=== PATIENT | female | born 1995 | race Caucasian/White ===

== ENCOUNTER 2016-05-02 23:58 | Emergency (ER) | payer BC ==
[~2016-05-02] VITALS: Ht 172.7 cm; Wt 72.1 kg
[~2016-05-02 23:58] MED LIST: BCPILLS PO; SERT-234 PO
[2016-05-03 00:03] VITALS: TEMP 36.8; Ht 172.7 cm; Wt 72.1 kg
[2016-05-03] MEDS ORDERED: ZLF/50 PO (01:35)
[2016-05-03] MEDS ORDERED: NORGTAB10 PO (01:35)
[2016-05-03] MEDS ORDERED: PROPARACAINE HCL 0.5% OP SOLN 15 ML BTL OP STA (01:37)
[2016-05-03] MEDS ORDERED: CIPROFLOXACIN HCL 0.3% OP SOLN 2.5 ML BTL OP STA (02:13)
[2016-05-03] MEDS ORDERED: CLINDAMYCIN IV 900 MG in DEXTROSE 5% ADD-VANTAGE 100ML 100 ML IV ONE (02:15)
[2016-05-03 02:40] LABS: HEMATOCRIT 32.3 % (37-47); MEAN CELL VOLUME 86.8 fL (80-100); MEAN CORPUSCULAR HEMOGLOBIN 30.4 pg (25-34); MEAN PLATELET VOLUME 10.2 fL (7.4-10.4); PLATELET COUNT 203 K/uL (130-400); RED BLOOD COUNT 3.72 M/uL (4.2-5.4); WHITE BLOOD COUNT 6.89 K/uL (4.8-10.8)
[2016-05-03 03:00] LABS: BUN/CREATININE RATIO 16.4 (10-20); CALCIUM 8.5 mg/dl (8.5-10.1); CREATININE 0.67 mg/dl (0.60-1.20); POTASSIUM 3.8 mmol/L (3.5-5.1)
[2016-05-03 03:04] LABS: BASO % 0.6 %; BASO ABS # 0.04 K/uL (0-0.2); COMPLETE YES; EOS % 3.9 %; IG% 0.1 %; LYMPH % 32.7 %; LYMPH ABS # 2.25 K/uL (1.2-3.4); MONO % 9.3 %; NEUT % 53.4 %
[2016-05-03] MEDS ORDERED: CIPR0.3S OP (03:49)
[2016-05-03] MEDS ORDERED: CLIN300C2 PO (03:49)
--- NOTE | 2016-05-03 03:50 | EMERGENCY ROOM VISIT NOTE ---
History First contact with patient: 01:11 Chief Complaint: EYE ASSESSMENT Stated Complaint: EYE PAIN History of Present Illness The patient is a 20 year old female who presents to the Emergency Department by private vehicle for evaluation of irritation, redness, swelling to the LEFT eye. She reports that she noticed this swelling this morning. She was concern for pinkeye initially, but also reports a significant past medical history of preseptal cellulitis. She denies any fevers or chills. She reports no blurry or double vision. She does not use contacts or corrective lenses. She denies a trauma or injury to her eye. She reports no foreign body sensation. The patient rates her current discomfort as a 4/10. She is tried nothing over-the- counter for her symptoms. She denies any fevers, chills, headaches, dizziness, lightheadedness, nausea, vomiting, or neck pain/stiffness. Review of Systems A complete 10-point Review of Systems was discussed with the patient, with pertinent positives and negatives listed in the History of Present Illness. All remaining Review of Systems questions can be considered negative unless otherwise specified. Social History Smoking Status: Never Smoker Smokeless Tobacco Use: No Alcohol Use: occasionally Drug Use: none Marital Status: single Housing Status: lives with roommate Occupation Status: [employer] Current/Historical Medications Scheduled Ciprofloxacin Hcl (Ophth) (Ciloxan Oph), 1 DROP OP Q4H Clindamycin Hcl (Cleocin), 300 MG PO QID Norgestimate-Ethinyl Estradiol (Mononessa), 1 TAB PO DAILY Sertraline HCl (Sertraline HCl), 50 MG PO DAILY Allergies Coded Allergies: Clarithromycin (Unverified Allergy, Unknown, HIVES, 05/03/16) Physical Exam Vital Signs Date Time Temp Pulse Resp B/P Pulse Ox O2 Delivery O2 Flow Rate FiO2 05/03/16 04:08 78 18 125/92 98 05/03/16 01:56 95 18 126/78 98 Room Air 05/03/16 00:03 36.8 95 18 131/82 98 Room Air Right Eye Acuity: 20/15 Left Eye Acuity: 20/20 Pain Rating (0-10): 4 Physical Exam VITAL SIGNS - Vital signs and nursing notes were reviewed. GENERAL - 20-year-old female appearing her stated age. Communicates well with provider and answers questions appropriately. HEAD - Normocephalic, Atraumatic. No Wild's Sign or Raccoon's Eyes. No depressed skull fractures palpable. EYES - PERRL with EOMI bilaterally. Sclera without noticeable foreign body or excoriations. Mild injection noted in the LEFT eye. Without subconjunctival hemorrhage. Palpebral conjunctiva pink and moist with no injection or discharge noted. Slit lamp examination performed as further described. EARS - No deformities of external structures noted on gross examination bilaterally. Handle of malleus, umbo, cone of light, pars tensa/flaccid all easily visualized. NOSE - Midline and without cyanosis. Without discharge. MOUTH/OROPHARYNX - Without perioral cyanosis. Tongue midline with equal elevation of palate bilaterally. No tonsillar hypertrophy, erythema, or exudates noted. Good dentition noted. NECK - FROM assessed. No cervical lymphadenopathy noted. Medical Decision & Procedures Laboratory Results 05/03/16 02:30 Red Blood Count 3.72, Mean Corpuscular Volume 86.8, Mean Corpuscular Hemoglobin 30.4, Mean Corpuscular Hemoglobin Concent 35.0, Mean Platelet Volume 10.2, Neutrophils (%) (Auto) 53.4, Lymphocytes (%) (Auto) 32.7, Monocytes (%) (Auto) 9.3, Eosinophils (%) (Auto) 3.9, Basophils (%) (Auto) 0.6, Neutrophils # (Auto) 3.68, Lymphocytes # (Auto) 2.25, Monocytes # (Auto) 0.64, Eosinophils # (Auto) 0.27, Basophils # (Auto) 0.04 05/03/16 02:30 Test 05/03/16 02:30 White Blood Count 6.89 K/uL (4.8-10.8) Red Blood Count 3.72 M/uL (4.2-5.4) Hemoglobin 11.3 g/dL (12.0-16.0) Hematocrit 32.3 % (37-47) Mean Corpuscular Volume 86.8 fL (80-100) Mean Corpuscular Hemoglobin 30.4 pg (25-34) Mean Corpuscular Hemoglobin Concent 35.0 g/dl (32-36) Platelet Count 203 K/uL (130-400) Mean Platelet Volume 10.2 fL (7.4-10.4) Neutrophils (%) (Auto) 53.4 % Lymphocytes (%) (Auto) 32.7 % Monocytes (%) (Auto) 9.3 % Eosinophils (%) (Auto) 3.9 % Basophils (%) (Auto) 0.6 % Neutrophils # (Auto) 3.68 K/uL (1.4-6.5) Lymphocytes # (Auto) 2.25 K/uL (1.2-3.4) Monocytes # (Auto) 0.64 K/uL (0.11-0.59) Eosinophils # (Auto) 0.27 K/uL (0-0.5) Basophils # (Auto) 0.04 K/uL (0-0.2) RDW Standard Deviation 41.9 fL (36.4-46.3) RDW Coefficient of Variation 13.1 % (11.5-14.5) Immature Granulocyte % (Auto) 0.1 % Immature Granulocyte # (Auto) 0.01 K/uL (0.00-0.02) Anion Gap 8.0 mmol/L (3-11) Est Creatinine Clear Calc Drug Dose 133.9 ml/min Estimated GFR () 145.6 Estimated GFR (Non- 125.7 BUN/Creatinine Ratio 16.4 (10-20) Calcium Level 8.5 mg/dl (8.5-10.1) Medications Administered Medications (Trade) Dose Ordered Sig/Kirk Route Start Time Stop Time Status Last Admin Dose Admin Clindamycin Phosphate/Dextrose (Cleocin Iv/ Dextrose Add-[place] 100ML) 106 ml @ 100 mls/hr ONE ONCE IV 05/03/16 02:15 05/03/16 03:18 DC 05/03/16 02:39 100 MLS/HR Ciprofloxacin HCl (Ciprofloxacin 0.3% Op Soln) 2 drops NOW STAT OP 05/03/16 02:13 05/03/16 02:15 DC 05/03/16 02:39 2 DROPS Procedure Slit Lamp Examination was performed of the LEFT eye(s). Alcaine drops were applied to the affected eye(s) for proper anesthetization. The affected eye(s) were stained with Fluorescein stain to precipitate adequate visualization of any conjunctival/scleral excoriations or ulcers. The patient's face was comfortably rested on the chin guard of the slit lamp apparatus. The lights were dimmed and the affected eye(s) were thoroughly examined under microscopy using the blue light. No uptake was present throughout. Additionally, the eye(s ) were examined under microscopy using the regular light. Close examination revealed no hyphema or hypopyon. Patient tolerated the procedure well and no complications were met. An Automated Tonometer was utilized to obtain bilateral orbital pressures. The pressures in the LEFT eye were found to be 14, 14, and 14. The pressures in the RIGHT eye were found to be 12, 10, and 11. Patient tolerated the procedure well and no complications were met. ED Course Patient was seen and evaluated by myself. Previous emergency department visit notes were reviewed. Slit-lamp and automated tonometry were performed. Visual acuity was assessed. IV lock was established and the patient was treated with IV Cleocin. She has tolerated this in the past successfully. Laboratory results demonstrate no acute leukocytosis, worrisome anemia, or bandemia. The patient has no significant electrolyte abnormalities. She was instructed to return in 24 hours for recheck. She was treated with Ciloxan drops topically as well. She was encouraged to follow up with ophthalmology from today's visit. She was educated on worrisome symptoms for return visit to the emergency department. Patient discharged home afebrile and in good condition. Medical Decision Given the patient's presentation and stated complaints, I did elect to perform the above-mentioned workup. The patient presents today with erythema to the LEFT surrounding eye. She has no fever. She has no leukocytosis. She does have history of preseptal cellulitis. Her intraocular pressures are not elevated of concern. Slit-lamp exam is otherwise unremarkable. I'm unconcerned based on exam for any ocular involvement. I do not feel that imaging studies are necessary at this point. She will be treated with oral clindamycin after receiving IV doesn't emergency setting. She'll be treated with topical Ciloxan drops. She will return in the setting of any changing or worsening symptoms. Otherwise, she will return in 24 hours for recheck and follow up with ophthalmology from there. Patient discharged home afebrile and in good condition. In the evaluation and treatment of this patient, the following differential diagnoses were considered: Corneal Abrasion, Conjunctivitis, Eye Contusion, Globe Injury, Orbital Floor Injury (Blowout Fracture), Corneal Ulcer, Keratitis , Herpes Zoster Ophthalmic, Blepharitis, Orbital Cellulitis, Iritis, Scleritis/ Episcleritis, Uveitis, Temporal Arteritis, Subconjunctival Hemorrhage. Impression Primary Impression: Preseptal cellulitis of left eye Departure Information Dispostion Home / Self-Care Condition GOOD Prescriptions Ciprofloxacin Hcl (Ophth) (CILOXAN OPH) 0.3 % [place] 1 DROP OP Q4H for 7 Days, #1 BTL Prov: Kashif Geiger PA-C 05/03/16 Clindamycin Hcl (CLEOCIN) 300 Mg Cap 300 MG PO QID for 10 Days, #40 CAP Prov: Kashif Geiger PA-C 05/03/16 Referrals [facility] (PCP) Patient Instructions My [facility] Additional Instructions You have been treated in the Emergency Department for Preseptal Cellulitis. You have been prescribed Ciloxan eye drops. This is an antibiotic which will help to prevent an infection from developing in your affected eye. You should use 2 drops in the affected eye every 2 hours while awake for the first 2 days, then every 4 hours for the remaining 5 days. This is a total of a 7-day course for these antibiotic eye drops. You were prescribed Cleocin to be taken as prescribed. This is an antibiotic. All antibiotics have the potential to cause diarrhea. Stop this medication and contact a medical provider if you were to develop any significant adverse side effects including: wheezing, shortness of breath, passing out, vomiting, or a diffuse rash. Always take antibiotics as directed and COMPLETE the ENTIRE course regardless of the improvement of your symptoms. For pain control, you can use the following peef-drh-uyndesk medicines (if >12 yo): - Regular strength (325mg/tab) Tylenol (acetaminophen) 2 tabs every 4-6 hours as needed. Do not exceed 12 tablets in a 24 hour period. Avoid taking more than 4 grams (4000 mg) of Tylenol per day. This includes any other sources of acetaminophen you may take on a regular basis. - Regular strength (200 mg/tab) Advil (ibuprofen) 1-2 tabs every 4-6 hours as needed. Do not exceed a dose of 3200 mg per day. Avoid rubbing your eyes for the next few days as this can cause irritation. Wear sunglasses when outside to help minimize your pain. You should relax in a quiet, dark room to help minimize your symptoms. Return to the emergency department 24 hours for recheck. Return sooner for any changing or worsening symptoms. Return to the emergency department if you develop the following symptoms despite treatment course outlined above: blurry vision, loss of vision, fever, intractable pain, increased redness, swelling, or purulent discharge.
[2016-05-03] MEDS ORDERED: CIPROFLOXACIN 500MG HOME PACK PO ONE (04:00)
[2016-05-03] MEDS ORDERED: CLINDAMYCIN 150MG HOME PACK PO ONE (04:00)
[2016-05-03 04:08] VITALS: BP 125/92; PULSE 78; O2SAT 98
== END 2016-05-03 04:10 | disposition home or self-care (01) ==
LOC: C.EDB 23:59 → C.EDC 05-03 04:10
DX: L03.213 Periorbital cellulitis (principal); H57.12 Ocular pain, left eye; Z88.1 Allergy status to other antibiotic agents

== ENCOUNTER 2016-05-04 11:40 | Emergency (ER) | payer BC ==
[~2016-05-04] VITALS: Ht 172.7 cm; Wt 71.0 kg
[~2016-05-04 11:40] MED LIST changes: -BCPILLS PO; +CIPR0.3S OP; +CLIN300C2 PO; +NORGTAB10 PO; -SERT-234 PO; +ZLF/50 PO
[2016-05-04 11:57] VITALS: TEMP 36.8; Ht 172.7 cm; Wt 71.0 kg
[2016-05-04 12:28] VITALS: BP 107/63; PULSE 77; O2SAT 99
--- NOTE | 2016-05-04 12:30 | EMERGENCY ROOM VISIT NOTE ---
ED Visit Note First contact with patient: 12:14 CHIEF COMPLAINT: Recheck of cellulitis HISTORY OF PRESENT ILLNESS: This 20-year-old female patient presents to the emergency department ambulatory for a recheck of her left arm cellulitis. She states that she was seen here 2 days ago and placed on antibiotics and eyedrops. She states that her symptoms have been improving since she was here. She has been taking her medications as prescribed. She denies any vision changes, fevers/chills, or increased redness or swelling. REVIEW OF SYSTEMS: A review of systems was performed with positives and pertinent negatives listed in the history of present illness. All other systems were reviewed and are negative. ALLERGIES: Clarithromycin MEDICATIONS: control pills, sertraline PMH: No significant past medical history. SOCIAL HISTORY: The patient is a [employer] student and lives with roommates. Nonsmoker, occasional alcohol use. PHYSICAL EXAM: VITALS: Vitals are noted on the nurse's note and reviewed by myself. Vital signs stable. Temperature 36.8C. GENERAL: This is a 20-year-old female, in no acute distress, nondiaphoretic, well-developed well-nourished. HEENT: There is minimal preseptal swelling of the left eye. There is conjunctival injection. EOMs are intact and nonpainful. EMERGENCY DEPARTMENT COURSE: The patient was evaluated as above. Previous records were reviewed. The patient was placed on clindamycin and Ciloxan drops 2 days ago. She reports her symptoms have been improving and her physical exam is consistent with improvement of symptoms. She was instructed to continue her current treatment and follow-up with [facility] this week. She verbalized understanding of my assessment and treatment plan was discharged home in good condition. DIAGNOSIS: Preseptal cellulitis- recheck Current/Historical Medications Scheduled Ciprofloxacin Hcl (Ophth) (Ciloxan Oph), 1 DROP OP Q4H Clindamycin Hcl (Cleocin), 300 MG PO QID Norgestimate-Ethinyl Estradiol (Mononessa), 1 TAB PO DAILY Sertraline HCl (Sertraline HCl), 50 MG PO DAILY Allergies Coded Allergies: Clarithromycin (Unverified Allergy, Unknown, HIVES, 05/03/16) Vital Signs Date Time Temp Pulse Resp B/P Pulse Ox O2 Delivery O2 Flow Rate FiO2 05/04/16 12:28 77 16 107/63 99 Room Air 05/04/16 11:57 36.8 85 18 112/77 99 Departure Information Impression Primary Impression: Preseptal cellulitis of left eye Dispostion Home / Self-Care Condition GOOD Referrals [facility] (PCP) Patient Instructions My [facility] Additional Instructions Continue the antibiotics as prescribed. Continue the discharge instructions given to you at your last visit. Follow-up with [facility] services in 4-5 days. Return to the emergency with vision changes, difficult removing the eye, fevers , increasing swelling/redness or any other new/concerning symptoms.
== END 2016-05-04 12:37 | disposition home or self-care (01) ==
LOC: C.EDB 11:41 → C.EDD 12:37
DX: L03.213 Periorbital cellulitis (principal)